=== PATIENT | male | born 1965 | race Caucasian/White ===

== ENCOUNTER → 2021-05-31 | Outpatient (CLI) | payer BC ==
--- NOTE | 2021-06-01 12:32 | US ---
EXAMINATION TYPE: US groin LT DATE OF EXAM: 05/31/2021 COMPARISON: NONE CLINICAL HISTORY: K40.90 Left inguinal hernia. Left groin pain. No injury. No palpable. Area of concern scanned. Valsalva images taken. Unable to visualize hernia on today's ultrasound ex am. IMPRESSION: 1. Left inguinal region negative for hernia by ultrasound criteria. 2. If additional evaluation would be beneficial, consider CT.
== END | disposition home or self-care (01) ==
LOC: RADUSWWP 14:57
PROVIDERS: ATTEND Family Medicine
DX: R10.32 Left lower quadrant pain (principal)